=== PATIENT | male | born 1995 | race African-American/Black ===

== ENCOUNTER 2017-02-15 17:54 | Emergency (ER) | payer OTHER ==
[~2017-02-15] VITALS: Ht 180.3 cm; Wt 108.9 kg
[2017-02-15 18:09] VITALS: BP 129/88
== END 2017-02-15 20:00 | disposition home or self-care (01) ==
LOC: ER 18:13
DX: Z02.83 Encounter for blood-alcohol and blood-drug test (principal); Z04.1 Encounter for examination and observation following transport accident